=== PATIENT | female | born 1980 | race Caucasian/White ===

== ENCOUNTER 2017-03-16 09:41 | Day surgery (SDC) | payer OTHER ==
[~2017-03-16] VITALS: Ht 160 cm; Wt 91.0 kg
[~2017-03-16 09:41] MED LIST: ENDOCET 5-3251 EACH PO; MOTRIN800 MG PO; Motrin PO; Percocet 5/325,Endoc PO; TYLENOL EXTRA500 MG PO
[2017-03-16 09:55] VITALS: BP 118/58
[2017-03-16] MEDS ORDERED: NORCO 5/3251 TABLET PO (12:51)
[2017-03-16 14:03] VITALS: BP 122/68
[2017-03-16 15:10] VITALS: BP 128/68
== END 2017-03-16 15:30 | disposition home or self-care (01) ==
LOC: SDC
PROC: 0FT44ZZ Resection of Gallbladder, Percutaneous Endoscopic Approach (ICD-10-PCS; principal; 2017-03-16)
DX: K80.10 Calculus of gallbladder with chronic cholecystitis without obstruction (principal); E66.9 Obesity, unspecified; Z68.35 Body mass index [BMI] 35.0-35.9, adult; J45.909 Unspecified asthma, uncomplicated; G47.30 Sleep apnea, unspecified; E78.5 Hyperlipidemia, unspecified; Z83.3 Family history of diabetes mellitus; Z80.42 Family history of malignant neoplasm of prostate; F17.200 Nicotine dependence, unspecified, uncomplicated; Z88.0 Allergy status to penicillin; Z91.030 Bee allergy status
CPT/HCPCS: 88304; J0690; J1100; J1170; J1885; J2250; J2405; J2710; J2765; J3010